=== PATIENT | male | born 1975 | race American Indian/Alaskan Native ===

== ENCOUNTER 2017-10-09 02:04 | Emergency (ER) | payer SELFPAY ==
[2017-10-09 02:23] VITALS: BP 125/75
[2017-10-09 04:23] LABS: Bacteria,Urine 1+ /HPF (Negative); Bilirubin,Urine NEG (Negative); Blood,Urine MOD (Negative); Color,Urine Yellow (Yellow); Mucus,Urine FEW /HPF
--- NOTE | 2017-10-09 04:47 | Emergency Department Report ---
ED Male HPI - General Chief complaint: Urogenital-Male Stated complaint: BURNING WHEN I PEE Time Seen by Provider: 10/09/17 04:31 Source: patient Mode of arrival: Ambulatory Limitations: No Limitations - History of Present Illness Initial comments: 42-year-old -[place] male comes in complaining of burning and pain when he urinates 2 days. Patient also reports his yellow green discharge. Patient reports that he recently got out of skilled nursing on Sunday for after doing teen years. Patient denies any fever chills no nausea no vomiting. She denies any allergies to medication currently takes no meds and has no past medical history. MD Complaint: penile discharge, dysuria -: days(s) (2) Severity scale (0 -10): 9 Quality: burning Consistency: intermittent Improves with: none Worsens with: urination discharge, blood in urine, dysuria - Related Data Sexually active: Yes (women) Previous Rx's Medication Instructions Recorded Last Taken Type Doxycycline [Vibramycin CAP] 100 mg PO Q12HR #20 capsule 10/09/17 Unknown Rx Allergies Allergy/AdvReac Type Severity Reaction Status Date / Time No Known Allergies Allergy Unverified 10/09/17 03:44 ED Review of Systems ROS: Stated complaint: BURNING WHEN I PEE Other details as noted in HPI Comment: All other systems reviewed and negative Constitutional: denies: chills, fever Gastrointestinal: denies: abdominal pain, nausea, diarrhea Genitourinary: urgency, dysuria, discharge ED Past Medical Hx - Past Medical History Previous Medical History?: No - Surgical History Past Surgical History?: No - Social History Smoking Status: Current Some Day Smoker - Medications Home Medications: Home Medications Medication Instructions Recorded Confirmed Last Taken Type Doxycycline [Vibramycin CAP] 100 mg PO Q12HR #20 capsule 10/09/17 Unknown Rx ED Physical Exam - General Limitations: No Limitations General appearance: alert, in no apparent distress - Head Head exam: Present: atraumatic, normocephalic - Eye Eye exam: Present: other (tearful) - Respiratory Respiratory exam: Present: normal lung sounds bilaterally. Absent: respiratory distress - Cardiovascular Cardiovascular Exam: Present: regular rate, normal rhythm. Absent: systolic murmur, diastolic murmur, rubs, gallop - GI/Abdominal GI/Abdominal exam: Present: soft, normal bowel sounds - Rectal Rectal exam: Present: deferred - exam: Present: urethral discharge, other (tender lymph nodes in the groin and left side). Absent: testicular tenderness, scrotal swelling - Extremities Exam Extremities exam: Present: normal inspection ED Course Vital Signs 10/09/17 10/09/17 02:17 03:47 Temperature 98.2 F 98.2 F Pulse Rate 86 73 Respiratory 18 18 Rate Blood Pressure 125/75 125/75 O2 Sat by Pulse 97 98 Oximetry Critical care attestation.: If time is entered above; I have spent that time in minutes in the direct care of this critically ill patient, excluding procedure time. ED Disposition Clinical Impression: Exposure to STD Disposition: DC-01 TO HOME OR SELFCARE Is pt being admited?: No Does the pt Need Aspirin: No Condition: Stable Instructions: Safe Sex (ED), Sexually Transmitted Diseases (ED) Additional Instructions: Please take medication as prescribed. Follow-up with the health department for further evaluation. Prescriptions: Doxycycline [Vibramycin CAP] 100 mg PO Q12HR #20 capsule Referrals: PRIMARY CARE, [Primary Care Provider] - 3-5 Days [facility] Dept[facility] [Outside] - 3-5 Days [facility] [Outside] - 3-5 Days [facility] [Outside] - 3-5 Days [facility] [Outside] - 3-5 Days
[2017-10-09] MEDS ORDERED: XYLOCAINE 1% MPF 5 mL INFILTRATI ONE (04:54)
[2017-10-09] MEDS ORDERED: ROCEPHIN IM ONE (04:54)
[2017-10-09] MEDS ORDERED: FLAGYL PO ONE (04:54)
[2017-10-09] MEDS ORDERED: ZITHROMAX PO ONE (04:54)
== END 2017-10-09 05:20 | disposition home or self-care (01) ==
LOC: ED 02:04
DX: R30.0 Dysuria (principal); R36.9 Urethral discharge, unspecified; Z20.2 Contact with and (suspected) exposure to infections with a predominantly sexual mode of transmission; F17.200 Nicotine dependence, unspecified, uncomplicated
CPT/HCPCS: 81001; 96372; 99283; J0696